=== PATIENT | female | born 1935 | race Asian ===

== ENCOUNTER 2019-08-06 20:38 | Inpatient (IN) | payer MEDICARE ==
[~2019-08-06] VITALS: Ht 157.5 cm; Wt 59.9 kg
--- NOTE | 2019-08-06 20:57 | NUR ---
BIBFAMILY FROM HOME TO ER BED 10. AAOX4. NO RESP DISTRES NOTED. BREATHING EVEN AND UNLABORED. AMBULATORY. C/O PALPITATION AND TREMBLING. PT REPORTS THAT TREMBLING STARTED @ 7PM AND FELT THAT HER HEART IS RACING. PT RONNY CP. DENIES NVD. WA AT BEDSIDE FOR EVAL. ORDERS RECEIVED NOTED AND CARRIED OUT. IV LINE ON R AC 20G. BLOOD DRAWN AND GIVEN TO PULMONARY PHYSICIAN AT BEDSIDE
[2019-08-06] MEDS ORDERED: IBUPROFEN 600 MG TABLET PO ONE (21:00)
[2019-08-06] MEDS ORDERED: AMOXICILLIN TRIHYDRATE 250 MG CAPSULE PO ONE (21:00)
[2019-08-06 21:01] LABS: BASOPHILS % (AUTO) 0.5 % (0.0-2.0); EOSINOPHILS % (AUTO) 2.2 % (0.0-6.0); HEMATOCRIT 36 % (33-45); HEMOGLOBIN 11.8 g/dL (11.5-14.8); LYMPHOCYTES # (AUTO) 2.4 /CMM (0.8-4.8); LYMPHOCYTES % (AUTO) 32.3 % (20.0-44.0); MEAN CORPUSCULAR HGB CONC 33 g/dl (31.0-36.0); MEAN CORPUSCULAR VOLUME 90 fL (82-100); MONOCYTES # (AUTO) 0.6 /CMM (0.1-1.30); MONOCYTES % (AUTO) 8.5 % (2.0-12.0); NEUTROPHILS # (AUTO) 4.2 /CMM (1.8-8.9); NEUTROPHILS % (AUTO) 56.5 % (43.0-81.0); PLATELET COUNT (AUTO) 276 /CMM (150-450); RED BLOOD CELL COUNT(AUTO) 3.97 MIL/uL (4.0-5.2); WHITE BLOOD COUNT (AUTO) 7.4 K/uL (4.3-11.0)
[2019-08-06 21:09] LABS: CALCIUM, SERUM 8.9 mg/dL (8.5-10.1); CARBON DIOXIDE 26 mmol/L (21-32); CHLORIDE 96 mmol/L (98-107); CREATININE 1.1 mg/dL (0.6-1.3); GLUCOSE 198 mg/dL (74-106); POTASSIUM 3.9 mmol/L (3.5-5.1); SODIUM SERUM 136 mmol/L (136-145); UREA NITROGEN, BLOOD 12 mg/dL (7-18)
[2019-08-06 21:22] LABS: ALANINE AMINOTRANSFERASE 18 U/L (12-78); ALBUMIN 4.2 g/dL (3.4-5.0); ALKALINE PHOSPHATASE 72 U/L (46-116); ASPARTATE AMINOTRANSFERASE 13 U/L (15-37); B-TYPE NATRIURETIC PEPTIDE 55 PG/ML (0-125); BILIRUBIN,DIRECT 0.1 mg/dL (0.0-0.2); BILIRUBIN,TOTAL 0.4 mg/dL (0.2-1.0); TOTAL PROTEIN, SERUM 8.2 g/dL (6.4-8.2)
[2019-08-06] MEDS ORDERED: CLONIDINE HCL 0.1 MG TABLET ONE (22:06)
--- NOTE | 2019-08-06 22:25 | NUR ---
PT NOTED W/ ELEVATED BP OF 187/87. MADE AWARE. ORDER RECEIVED FOR CLONIDINE 0.1MG X 1
[2019-08-06] MEDS ORDERED: LORAZEPAM 0.5 MG TABLET ONE (22:28)
[2019-08-06] MEDS ORDERED: ONDANSETRON HCL/PF 4 MG/2 ML VIAL IVP PRN (22:30)
[2019-08-06] MEDS ORDERED: DEXTROSE 50%-WATER 50 ML DISP.SYRIN IV PRN (22:30)
[2019-08-06] MEDS ORDERED: ZOLPIDEM TARTRATE 5 MG TABLET PO PRN (22:30)
[2019-08-06] MEDS ORDERED: METOPROLOL TARTRATE INJ 5 MG/5 ML AMPUL IV ONE (22:30)
[2019-08-06] MEDS ORDERED: LORAZEPAM 0.5 MG TABLET PO ONE (22:30)
[2019-08-06] MEDS: BLOOD SUGAR DIAGNOSTIC 1 EACH STRIP IN SCH (22:30)
[2019-08-06] MEDS ORDERED: ENOXAPARIN SODIUM 40 MG/0.4 ML DISP.SYRIN SQ ONE (22:30)
[2019-08-06] MEDS ORDERED: CLONIDINE HCL 0.1 MG TABLET PO ONE (22:30)
[2019-08-06] MEDS ORDERED: MAG HYDROX/AL HYDROX/SIMETH 30 ML UDC PO PRN (22:30)
[2019-08-06] MEDS ORDERED: MAGNESIUM HYDROXIDE 30 ML UDC PO PRN (22:30)
[2019-08-06] MEDS ORDERED: ACETAMINOPHEN 325 MG TABLET PO PRN (22:30)
[2019-08-06] MEDS ORDERED: Z GUARD REMEDY 2 OZ OINT TP PRN (22:30)
[2019-08-06] MEDS ORDERED: HYDROCODONE/APAP 5/325MG 1 EACH TABLET PO PRN (22:30)
[2019-08-06] MEDS ORDERED: ASPIRIN 81 MG TAB.CHEW PO ONE (23:00)
--- NOTE | 2019-08-06 23:12 | NUR ---
REPORT GIVEN TO AL MORALES FOR ELENA
--- NOTE | 2019-08-06 23:23 | NUR ---
US AT BEDSIDE
[2019-08-07] VITALS (8 sets, daily range): BP systolic 119–165; BP diastolic 60–79
--- NOTE | 2019-08-07 00:10 | NUR ---
PT TRANSPORTED TO UNIT ON [facility] WITH EMT AND RN AT BEDSIDE W/ ACLS PROTOCOL. NAD NOTED DURING TRANSPORT. PT AMBULATED FROM [facility] TO BED
--- NOTE | 2019-08-07 00:15 | NUR ---
SPOT FACERCOMMIS CHEF NOTES RECEIVED REPORT FROM AL VASQUEZ, IN THE ER. PATIENT TRANSFERRED TO UNIT VIA GURNEY. FAMILY PRESENT AT THE BEDSIDE. PATIENT A/O X4. ABLE TO AMBULATE INDEPENDENTLY, STEADY GAIT. ON ROOM AIR. NO COMPLAINTS OF SOB OR CHEST PAIN AT THIS TIME. TELE MONITOR READING SINUS TACHY, HEART RATE 110-120 BPM. IV PRESENT ON RIGHT AC, SIZE 20, INTACT & PATENT, HEP LOCKED. SKIN ASSESSMENT COMPLETED, WNL. MED RECONCILIATION COMPLETED AT THE BEDSIDE. BELONGINGS LIST COMPLETED AND PLACED IN CHART. MRSA SWAB COMPLETED IN THE ER. PATIENT ABLE TO VERBALIZE NEEDS. BED LOCKED, SEMI-MATTA'S POSITION, SIDE RAILS X2, CALL LIGHT WITHIN REACH. WILL CONTINUE TO MONITOR.
--- NOTE | 2019-08-07 00:30 | NUR ---
DOORPERSON OR LUGGAGE PORTER NOTES BS 115
--- NOTE | 2019-08-07 00:45 | NUR ---
EDUCATIONAL AIDE NOTES CONTACTED PHARMACY TO VERIFY SCHEDULED MEDICATIONS.
--- NOTE | 2019-08-07 01:00 | NUR ---
FARM CONTRACTOR BUYER NOTES CONTACTED [facility] REGARDING MED RECONCILIATION; MADE AWARE AND AWAITING FOR CONTINUATION OF HOME MEDS.
[2019-08-07] MEDS ORDERED: METO100T14 PO (01:02)
[2019-08-07] MEDS ORDERED: METF-441 PO (01:02)
[2019-08-07] MEDS ORDERED: RANI150C4 PO (01:02)
[2019-08-07] MEDS ORDERED: LEVO88TA5 PO (01:02)
[2019-08-07] MEDS ORDERED: AMLO5TAB9 PO (01:02)
--- NOTE | 2019-08-07 01:30 | NUR ---
SYSTEMS TECHNICIAN NOTES SCHEDULED MEDICATIONS STILL UNVERIFIED. CONTACTED PHARMACY TO FOLLOW UP.
[2019-08-07] MEDS ORDERED: METOPROLOL TARTRATE INJ 5 MG/5 ML AMPUL IVP ONE ×2 (02:00→03:00)
--- NOTE | 2019-08-07 03:41 | NUR ---
SHINGLES ROOFER HELPER NOTES LOPRESSOR 10 MG IVP HELD - BP: 119/69 HR: 94. TELE MONITOR READING SINUS RHYTHM
[2019-08-07] MEDS: BLOOD SUGAR DIAGNOSTIC 1 EACH STRIP IN SCH ×4 (06:33→21:54)
[2019-08-07] MEDS: ASPIRIN 81 MG TAB.CHEW PO SCH ×2 (06:34→09:19)
[2019-08-07 06:51] LABS: BASOPHILS % (AUTO) 0.7 % (0.0-2.0); EOSINOPHILS % (AUTO) 2.2 % (0.0-6.0); HEMATOCRIT 31 % (33-45); HEMOGLOBIN 10.1 g/dL (11.5-14.8); LYMPHOCYTES # (AUTO) 1.5 /CMM (0.8-4.8); LYMPHOCYTES % (AUTO) 28.7 % (20.0-44.0); MEAN CORPUSCULAR HGB CONC 33 g/dl (31.0-36.0); MEAN CORPUSCULAR VOLUME 90 fL (82-100); MONOCYTES # (AUTO) 0.5 /CMM (0.1-1.30); MONOCYTES % (AUTO) 9.8 % (2.0-12.0); NEUTROPHILS # (AUTO) 3.1 /CMM (1.8-8.9); NEUTROPHILS % (AUTO) 58.6 % (43.0-81.0); PLATELET COUNT (AUTO) 244 /CMM (150-450); RED BLOOD CELL COUNT(AUTO) 3.43 MIL/uL (4.0-5.2); WHITE BLOOD COUNT (AUTO) 5.3 K/uL (4.3-11.0)
--- NOTE | 2019-08-07 07:14 | NUR ---
AUTOMATIC TRIMMING SEWER NOTES PATIENT AWAKE IN BED. A/OX4. ON ROOM AIR. TELE MONITOR READING NORMAL SINUS RHYTHM, HEART RATE 86. NO COMPLAINTS OF SOB OR CHEST PAIN AT THIS TIME. PATIENT SEEN BY DR. VYAS AT THE BEDSIDE. IV PRESENT ON RIGHT AC, SIZE 20, INTACT & PATENT, HEP LOCKED. BED LOCKED, SEMI-MATTA'S POSITION, SIDE RAILS X2, CALL LIGHT WITHIN REACH. WILL ENDORSE TO DAY SHIFT NURSE TO FOLLOW PLAN OF CARE.
[2019-08-07 07:26] LABS: CALCIUM, SERUM 8.3 mg/dL (8.5-10.1); CREATININE 0.7 mg/dL (0.6-1.3); PHOSPHORUS 4.3 mg/dL (2.5-4.9); POTASSIUM 3.9 mmol/L (3.5-5.1)
[2019-08-07 07:46] LABS: MAGNESIUM 1.1 mg/dL (1.8-2.4)
[2019-08-07] MEDS ORDERED: METFORMIN 850 MG TABLET PO SCH (08:00)
--- NOTE | 2019-08-07 08:04 | NUR ---
QUALITY ASSURANCE ADVISOR NOTES PATIENT RECEIVED RESTING INSIDE ROOM. AWAKE, A/O X 4. NO ACUTE DISTRESS. NO CHANGES IN LOC. PATIENT CALM AND RELAXED. DENIES ANY PAIN OR DISCOMFORT. WITH ORDER FROM DR VYAS FOR CTA HEART WITH 3D IMAGING. PATIENT MADE AWARE AND VERBALIZED UNDERSTANDING. AWAITING FOR SCHEDULE FROM RADIOLOGY. CONTINUE TELEMETRY, SR 87. WILL CONTINUE TO MONITOR. BED LOCKED AND IN LOW POSITION. BILATERAL UPPER SIDE RAILS UP AND LOCKED. CALL LIGHT WITHIN EASY REACH
--- NOTE | 2019-08-07 08:10 | NUR ---
BROKER IN CHARGE NOTES PATIENT REPORTED THAT SHE HAD PREVIOUSLY HAD AN ANGIOGRAM DONE AND SHE EXPERIENCED GENERALIZED MILD-MODERATE ITCHING. DR VYAS MADE AWARE. WITH ORDER TO GIVE BENADRYL 25MG PO X 1 AND SOLU-MEDROL 100MG IV X 1 FOR POSSIBLE ALLERGIC REACTION DURING CTA PROCEDURE. NOTED AND CARRIED OUT. PATIENT MADE AWARE AND VERBALIZED UNDERSTANDING. WILL CONTINUE TO MONITOR
--- NOTE | 2019-08-07 08:51 | NUR ---
PRE KINDERGARTEN TEACHER NOTES PATIENT WITH ORDER FOR CTA BY DR VYAS. PATIENT WITH CURRENT ORDER FOR METFORMIN 850mg PO TID. DR JAUREGUI MADE AWARE WITH NEW ORDER TO DC METFORMIN AT THIS TIME. ORDER NOTED AND CARRIED OUT. PATIENT MADE AWARE AND VERBALIZED UNDERSTANDING. WILL CONTINUE TO MONITOR
--- NOTE | 2019-08-07 08:57 | NUR ---
STUDIO HAND NOTES MAG LEVEL 1.1. PER PHARMACY, UNABLE TO REPLACE BY PHARMACY LEVEL IS TOO LOW. DR JAUREGUI MADE AWARE. AWAITING ORDERS.
[2019-08-07] MEDS: METOPROLOL TARTRATE 50 MG TABLET PO SCH ×3 (09:00→17:35)
[2019-08-07] MEDS ORDERED: METOPROLOL TARTRATE 50 MG TABLET PO SCH (09:00)
[2019-08-07] MEDS: ENOXAPARIN SODIUM 40 MG/0.4 ML DISP.SYRIN SQ SCH (09:18)
[2019-08-07] MEDS: AMLODIPINE BESYLATE 5 MG TABLET PO SCH (09:19)
[2019-08-07] MEDS: LEVOTHYROXINE SODIUM 88 MCG TABLET PO SCH (09:19)
[2019-08-07] MEDS: FAMOTIDINE (20 MG) 20 MG TABLET PO SCH (09:19)
[2019-08-07] MEDS: Magnesium 1GM/D5W 100ML PREMIX 100 ML IV SCH ×4 (10:56→16:48)
--- NOTE | 2019-08-07 11:27 | NUR ---
LENS SILVERER NOTES PLACED CALL TO RADIOLOGY TO FOLLOW-UP REGARDING CTA, VERBALIZED THAT NURSING EMERGENCY PHYSICIAN IS AWARE AND SAID THAT WERE STILL WAITING FOR LICENSED STAFF TO DO PROCEDURE. PATIENT AND SON, DEV AT BEDSIDE AWARE AND VERBALIZED UNDERSTANDING. WILL CONTINUE TO MONITOR
[2019-08-07] MEDS: INSULIN REGULAR, HUMAN 100 UNIT/ML 3 ML VIAL SQ PRN (17:35)
--- NOTE | 2019-08-07 18:45 | NUR ---
HEAD TEACHER NOTES PATIENT RESTING INSIDE ROOM. NO ACUTE DISTRESS. NO CHANGES IN LOC NOTED. PROFESSIONAL BENEFITS SALES CONSULTANT IN PLACE, SR 70'S. PATIENT KEPT CLEAN, DRY AND COMFORTABLE. WILL ENDORSE TO INCOMING SHIFT FOR ELENA. BED LOCKED AND IN LOW POSITION. BILATERAL UPPER SIDE RAILS UP AND LOCKED. CALL LIGHT WITHIN EASY REACH
--- NOTE | 2019-08-07 19:30 | NUR ---
MS RN OPENING NOTES PATIENT AWAKE IN BED UPON ARRIVAL. FAMILY PRESENT AT THE BEDSIDE. A/O X4. ON ROOM AIR. TELE MONITOR READING NSR, HEART RATE 77. NO COMPLAINTS OF CHEST PAIN OR SOB AT THIS TIME. IV PRESENT ON THE RIGHT AC, SIZE 20, INTACT & PATENT, HEP LOCKED. BED LOCKED, SEMI-MATTA'S POSITION, SIDE RAILS X2, CALL LIGHT WITHIN REACH. WILL CONTINUE TO MONITOR.
[2019-08-08] VITALS (7 sets, daily range): BP systolic 130–156; BP diastolic 70–84
[2019-08-08 06:46] LABS: BASOPHILS % (AUTO) 0.7 % (0.0-2.0); EOSINOPHILS % (AUTO) 3.2 % (0.0-6.0); HEMATOCRIT 36 % (33-45); HEMOGLOBIN 11.9 g/dL (11.5-14.8); LYMPHOCYTES # (AUTO) 1.6 /CMM (0.8-4.8); LYMPHOCYTES % (AUTO) 29.5 % (20.0-44.0); MEAN CORPUSCULAR HGB CONC 33 g/dl (31.0-36.0); MEAN CORPUSCULAR VOLUME 89 fL (82-100); MONOCYTES # (AUTO) 0.5 /CMM (0.1-1.30); MONOCYTES % (AUTO) 9.4 % (2.0-12.0); NEUTROPHILS # (AUTO) 3.1 /CMM (1.8-8.9); NEUTROPHILS % (AUTO) 57.2 % (43.0-81.0); PLATELET COUNT (AUTO) 282 /CMM (150-450); RED BLOOD CELL COUNT(AUTO) 4.04 MIL/uL (4.0-5.2); WHITE BLOOD COUNT (AUTO) 5.5 K/uL (4.3-11.0)
[2019-08-08 07:00] LABS: CALCIUM, SERUM 9.4 mg/dL (8.5-10.1); CREATININE 0.8 mg/dL (0.6-1.3); POTASSIUM 3.8 mmol/L (3.5-5.1)
[2019-08-08] MEDS: BLOOD SUGAR DIAGNOSTIC 1 EACH STRIP IN SCH ×3 (07:30→17:30)
--- NOTE | 2019-08-08 07:42 | NUR ---
JUMPBASTING MACHINE OPERATOR CLOSING NOTES PATIENT AWAKE AND RESTING IN BED. A/O X4. ON ROOM AIR. NO COMPLAINTS OF SOB, CHEST PAIN, OR PALPITATIONS AT THIS TIME. TELE MONITOR READING NORMAL SINUS RHYTHM, HEART RATE 66. IV PRESENT ON RIGHT AC, SIZE 20, INTACT & PATENT, HEP LOCKED. PATIENT SCHEDULED FOR CT ANGIO OF THE HEART, CONSENT SIGNED AND PLACED IN CHART. BED LOCKED, SEMI-MATTA'S POSITION, SIDE RAILS X2, CALL LIGHT WITHIN REACH. WILL ENDORSE TO DAY SHIFT NURSE TO FOLLOW PLAN OF CARE.
[2019-08-08] MEDS ORDERED: methylPREDNISolone SOD SUCC 125 MG/2ML VIAL IV PRN (08:00)
[2019-08-08] MEDS ORDERED: diphenhydrAMINE HCL 25 MG CAPSULE PO PRN (08:00)
[2019-08-08] MEDS: ASPIRIN 81 MG TAB.CHEW PO SCH (08:17)
[2019-08-08] MEDS: FAMOTIDINE (20 MG) 20 MG TABLET PO SCH (08:17)
[2019-08-08] MEDS: METOPROLOL TARTRATE 50 MG TABLET PO SCH ×2 (08:17→16:41)
[2019-08-08] MEDS: AMLODIPINE BESYLATE 5 MG TABLET PO SCH (08:18)
[2019-08-08] MEDS: ENOXAPARIN SODIUM 40 MG/0.4 ML DISP.SYRIN SQ SCH (08:20)
[2019-08-08] MEDS: LEVOTHYROXINE SODIUM 88 MCG TABLET PO SCH (08:32)
[2019-08-08] MEDS ORDERED: IOHEXOL-350 100 ML VIAL IV ONE ×2 (08:47→09:59)
[2019-08-08] MEDS ORDERED: IV NS 0.9% 250 ML IV ONE (08:47)
--- NOTE | 2019-08-08 08:55 | NUR ---
IV LINE LAC 18 G inserted for procedure. Benadryl and solu-medrol administrated. Patient picked up by radiology staff
[2019-08-08] MEDS ORDERED: NITROGLYCERIN 0.4 MG/TAB BOTTLE ONE (09:08)
[2019-08-08] MEDS ORDERED: METOPROLOL TARTRATE INJ 5 MG/5 ML AMPUL ONE ×2 (09:09→09:33)
[2019-08-08] MEDS: METOPROLOL TARTRATE INJ 5 MG/5 ML AMPUL IVP PRN ×10 (09:11→09:56)
[2019-08-08 09:28] LABS: FERRITIN 16 ng/mL (8-388)
[2019-08-08] MEDS ORDERED: NITROGLYCERIN 0.4 MG/TAB BOTTLE SL PRN (09:30)
[2019-08-08] MEDS ORDERED: IV NS 0.9% 500 ML IV PRN (09:30)
[2019-08-08 09:42] LABS: IRON, SERUM 52 ug/dl (50-175); TOTAL IRON BINDING CAPACITY 383 ug/dl (250-450)
--- NOTE | 2019-08-08 10:07 | NUR ---
CTA heart completed total of Metoprolol 50 mg IVP given with NTG 0.4 mg Sl, VSS; pt tolerated procedure; denies CP or SOB;l sent back to [facility] via wheelchair; endorsed at bedside to floor RN
--- NOTE | 2019-08-08 10:10 | NUR ---
Patient stable after procedure , no s/s allergic reaction noted . Remains on room air.
[2019-08-08] MEDS: INSULIN REGULAR, HUMAN 100 UNIT/ML 3 ML VIAL SQ PRN (11:44)
--- NOTE | 2019-08-08 18:20 | NUR ---
Patient cleared for d/c by MD and gas specialist. Patient ambulatory , alert and oriented x3, VS are stable on room air. Patient received recommendations, discharge instructions and teaching. Patient verbalized understanding . Patient will f/u with PCP in 2 weeks. All needs attended. IV lines removed, no bleeding noted. ID wrist band removed. Patient has no skin issues. Patient sighed d/c papers and valuable form; all belongings with the patient. Patient safely transferred to [facility] accompanied by PALM AND BACK FORGER and son.
[2019-08-09] MEDS ORDERED: VALS1TAB4 PO (14:20)
[2019-08-09] MEDS ORDERED: OMEP20CA15 PO (14:20)
[2019-08-09] MEDS ORDERED: METO-358 PO (14:20)
[2019-08-11] MEDS ORDERED: SIMV10TA98 PO (18:24)
[2019-08-11] MEDS ORDERED: ASPI-869 PO (18:24)
[2019-08-11] MEDS ORDERED: LEVO500T2 PO (18:24)
== END 2019-08-08 18:27 | disposition home or self-care (01) | DRG 641 ==
LOC: ER 20:43 → TELE 22:43 → MED 08-08 10:17
PROVIDERS: ADMIT Nurse Practitioner Acute Care; ATTEND Hospitalist
DX: E86.0 Dehydration (principal); I16.9 Hypertensive crisis, unspecified; I10 Essential (primary) hypertension; I25.10 Atherosclerotic heart disease of native coronary artery without angina pectoris; E11.9 Type 2 diabetes mellitus without complications; E83.42 Hypomagnesemia; Z95.5 Presence of coronary angioplasty implant and graft; E03.9 Hypothyroidism, unspecified; I70.0 Atherosclerosis of aorta
CPT/HCPCS: 36415; 71045-TC; 75574; 80048-TC; 80061-TC; 80076-TC; 82728-TC; 82962-TC; 83540-TC; 83735-TC; 83880; 84100-TC; 84439-TC; 84443-TC; 84484-TC; 85025-TC; 85378-TC; 85730-TC; 87040-TC; 87081-TC; 93307-TC; 93970-TC; 97116-TC; 97530-TC; G0378; J1650; J1815; J2930; J3475; J3490; J7050; Q0163; Q9967

== ENCOUNTER 2019-08-09 12:47 | Inpatient (IN) | payer MEDICARE ==
[~2019-08-09] VITALS: Ht 162.6 cm; Wt 59.4 kg
[~2019-08-09 12:47] MED LIST: AMLO5TAB9 PO; LEVO88TA5 PO; METF-441 PO; METO100T14 PO; RANI150C4 PO
--- NOTE | 2019-08-09 13:00 | NUR ---
PT CAME INTO THE ED C/O WEAKNESS,SHAKINESS, AND BEING MORE CONFUSED PER SON. PT ALERT, VSS, NO ACUTE DISTRESS NOTED. CONNECTED TO THE MONITOR AND POX
[2019-08-09 13:26] LABS: BASOPHILS % (AUTO) 0.2 % (0.0-2.0); EOSINOPHILS % (AUTO) 0.3 % (0.0-6.0); HEMATOCRIT 35 % (33-45); HEMOGLOBIN 11.3 g/dL (11.5-14.8); LYMPHOCYTES # (AUTO) 0.5 /CMM (0.8-4.8); LYMPHOCYTES % (AUTO) 2.9 % (20.0-44.0); MEAN CORPUSCULAR HGB CONC 32 g/dl (31.0-36.0); MEAN CORPUSCULAR VOLUME 90 fL (82-100); MONOCYTES # (AUTO) 0.8 /CMM (0.1-1.30); MONOCYTES % (AUTO) 4.5 % (2.0-12.0); NEUTROPHILS # (AUTO) 15.4 /CMM (1.8-8.9); NEUTROPHILS % (AUTO) 92.1 % (43.0-81.0); PLATELET COUNT (AUTO) 295 /CMM (150-450); RED BLOOD CELL COUNT(AUTO) 3.92 MIL/uL (4.0-5.2); WHITE BLOOD COUNT (AUTO) 16.7 K/uL (4.3-11.0)
[2019-08-09 13:35] LABS: CALCIUM, SERUM 9.4 mg/dL (8.5-10.1); CARBON DIOXIDE 31 mmol/L (21-32); CHLORIDE 94 mmol/L (98-107); CREATININE 0.9 mg/dL (0.6-1.3); GLUCOSE 176 mg/dL (74-106); POTASSIUM 4.3 mmol/L (3.5-5.1); SODIUM SERUM 132 mmol/L (136-145); UREA NITROGEN, BLOOD 17 mg/dL (7-18)
[2019-08-09] MEDS ORDERED: diphenhydrAMINE HCL 50 MG/ML VIAL ONE ×2 (13:55→14:10)
[2019-08-09] MEDS ORDERED: diphenhydrAMINE HCL 50 MG/ML VIAL IV ONE (14:00)
[2019-08-09] MEDS ORDERED: Magnesium 1 GM/2 ML VIAL IV ONE (14:00)
[2019-08-09] MEDS ORDERED: Magnesium 1 GM/2 ML VIAL ONE (14:09)
[2019-08-09] MEDS ORDERED: Magnesium 1GM/D5W 100ML PREMIX 100 ML IV ONE (14:12)
[2019-08-09] MEDS ORDERED: IOHEXOL-350 100 ML VIAL IV ONE (14:17)
[2019-08-09] MEDS ORDERED: CT SWABBABLE VALVE TRANS SET 1 EA INFUS.SET MC ONE (14:18)
[2019-08-09] MEDS ORDERED: IV NS 0.9% 250 ML IV ONE (14:18)
[2019-08-09] MEDS ORDERED: VALS1TAB4 PO (14:20)
[2019-08-09] MEDS ORDERED: METO-358 PO (14:20)
[2019-08-09] MEDS ORDERED: OMEP20CA15 PO (14:20)
[2019-08-09 14:48] LABS: CHOLESTEROL 188 mg/dL (<200); HDL CHOLESTEROL 71 mg/dL (40-60); LDL 112 mg/dL (0-99); TRIGLYCERIDES 123 mg/dL (30-150)
--- NOTE | 2019-08-09 15:30 | NUR ---
PT TAKEN TO CT
[2019-08-09] MEDS ORDERED: CEFTRIAXONE 1 G in IV D5W 50 ML IV ONE (16:00)
--- NOTE | 2019-08-09 16:00 | NUR ---
PT BACK FROM CT
[2019-08-09] MEDS ORDERED: CEFTRIAXONE 1GM BAG (ER ONLY) 50 ML IV ONE (16:04)
--- NOTE | 2019-08-09 16:18 | NUR ---
URINE COLLECTED AND SENT TO LAB
[2019-08-09 17:24] LABS: APPEARANCE,URINE Clear (CLEAR); BILIRUBIN,URINE Negative (NEGATIVE); BLOOD, URINE Negative Ery/uL (NEGATIVE); COLOR,URINE Yellow (YELLOW); KETONES,URINE Negative (NEGATIVE); LEUKOCYTE ESTERASE ,URINE Negative (NEGATIVE); NITRITE, URINE Negative (NEGATIVE); PROTEIN,URINE Negative (NEGATIVE); UGLUCOSE Negative (NEGATIVE); UROBILINOGEN,URINE 0.2 EU/dL (0.2)
[2019-08-09] MEDS ORDERED: ASPIRIN 325 MG TABLET PO ONE (18:00)
[2019-08-09] MEDS ORDERED: ASPIRIN 325 MG TABLET ONE (18:02)
--- NOTE | 2019-08-09 18:58 | NUR ---
PER RADIOLOGY, MRI IS SCHEDULED TOMORROW
[2019-08-09] MEDS ORDERED: ACETAMINOPHEN 325 MG TABLET PO PRN (19:00)
[2019-08-09] MEDS ORDERED: MAG HYDROX/AL HYDROX/SIMETH 30 ML UDC PO PRN (19:00)
--- NOTE | 2019-08-09 20:04 | NUR ---
REPORT GIVEN TO AL CURRIE
[2019-08-09 20:30] VITALS: BP 149/62
--- NOTE | 2019-08-09 20:30 | NUR ---
RN NOTES, RECEIVED 83 YEAR OLD FEMALE FROM ER DEPARTMENT VIA STRETCHER IN COMPANY OF 2 NURSES, PATIENT A/O X4 ABLE TO VERBALIZE NEEDS AND CONCERNS, UNDER MEDICAL SERVICES OF [facility], WITH ADMITTING DX OF CEREBRAL INFARCTION, PATIENT BREATHING EVEN AND UNLABORED AT ROOM AIR NO SOB/ACUTE DISTRESS NOTED, ABLE TO WALK FROM STRETCHER TO BED, NO DEFICITS NOTED, ASSESSMENT DONE WITH 0 SCORE FOR NIHSS, NO DRIFTING NOTED, NO ASYMMETRICAL SMILE, OR FACIAL DROOPING, NO SLURRED SPEECH NOTED, SON AT BEDSIDE, AFEBRILE, SKIN AFEBRILE AND INTACT, WITH 2 IV SITED RIGHT HAND AND RIGHT AC, PATENT AND INTACT, BED IN LOW POSITION, AMBULATORY WITH BRP PRIVILEGES, WILL CONTINUE TO MONITOR CLOSELY.
[2019-08-09] MEDS: SIMVASTATIN 10 MG TABLET PO SCH (22:00)
[2019-08-09] MEDS: ENOXAPARIN SODIUM 40 MG/0.4 ML DISP.SYRIN SQ SCH (22:15)
[2019-08-09] MEDS: BLOOD SUGAR DIAGNOSTIC 1 EACH STRIP IN SCH (22:22)
--- NOTE | 2019-08-09 22:35 | NUR ---
RN NOTES, PATIENT WITH BLOOD SUGAR LEVEL 232MG/dL, INFORMED MD ORDERED, AND CHERIE REPLIED WITH ORDER TO REPEAT ACCUCHECK IN 4 HRS AND IF IS MORE THAN 150, CALLED HIM BACK.
[2019-08-10] VITALS: BP 144/63
[2019-08-10] MEDS ORDERED: BLOOD SUGAR DIAGNOSTIC 1 EACH STRIP IN SCH
[2019-08-10 04:00] VITALS: BP 135/56
--- NOTE | 2019-08-10 07:00 | NUR ---
DOUGH MIXER HELPER NOTES PATIENT A/O X 4 . PATIENT IS COOPERATIVE WITH CARE PATIENT IS IN ROOM AIR AND TOLERATING WELL. NO SOB.NO PAIN. NO ACUTE RESPIRATORY DISTRESS. PATIENT MOVES AROUND IN BED INDEPENDENTLY . PATIENT SKIN IS IN TACT. . PATIENT IS CURRENTLY NPO PER DR ORDER. PATIENT HAS R IV SITE HAND / RIGHT AC LINE . BED LOCKED AND LOWEST POSITION CALL LIGHT WITH IN REACH. ALL SAFETY MEASURE IMPLEMENTED PER HOSPITAL POLICY
--- NOTE | 2019-08-10 07:00 | NUR ---
RN NOTES, NO SIGNIFICANT CHANGE IN CONDITION, CONTINUE NPO FOR FURTHER EVALUATION, WILL HAVE MRI TODAY, WILL ENDORSE CONTINUITY OF CARE TO ONCOMING NURSE.
[2019-08-10] MEDS: PANTOPRAZOLE 40 MG TABLET.DR PO SCH (07:30)
[2019-08-10] MEDS ORDERED: PANTOPRAZOLE 40 MG TABLET.DR PO SCH (07:30)
[2019-08-10 08:00] VITALS: BP 140/57
[2019-08-10 08:01] LABS: BASOPHILS # (AUTO) 0.1 /CMM (0.0-0.2); BASOPHILS % (AUTO) 0.4 % (0.0-2.0); EOSINOPHILS % (AUTO) 2.8 % (0.0-6.0); HEMATOCRIT 36 % (33-45); HEMOGLOBIN 11.9 g/dL (11.5-14.8); LYMPHOCYTES # (AUTO) 0.6 /CMM (0.8-4.8); LYMPHOCYTES % (AUTO) 4.3 % (20.0-44.0); MEAN CORPUSCULAR HGB CONC 33 g/dl (31.0-36.0); MEAN CORPUSCULAR VOLUME 89 fL (82-100); MONOCYTES # (AUTO) 0.8 /CMM (0.1-1.30); MONOCYTES % (AUTO) 5.6 % (2.0-12.0); NEUTROPHILS % (AUTO) 86.9 % (43.0-81.0); PLATELET COUNT (AUTO) 258 /CMM (150-450); RED BLOOD CELL COUNT(AUTO) 4.06 MIL/uL (4.0-5.2)
[2019-08-10 08:21] LABS: CREATININE 0.9 mg/dL (0.6-1.3); MAGNESIUM 1.7 mg/dL (1.8-2.4); PHOSPHORUS 4.4 mg/dL (2.5-4.9); POTASSIUM 4.1 mmol/L (3.5-5.1)
[2019-08-10] MEDS: ASPIRIN EC 325 MG TABLET.DR PO SCH ×2 (08:48→09:04)
[2019-08-10] MEDS: METOPROLOL TARTRATE 50 MG TABLET PO SCH ×2 (08:48→09:08)
[2019-08-10] MEDS: AMLODIPINE BESYLATE 5 MG TABLET PO SCH ×2 (08:49→09:04)
[2019-08-10] MEDS: LEVOTHYROXINE SODIUM 88 MCG TABLET PO SCH ×2 (08:50→09:03)
--- NOTE | 2019-08-10 08:51 | NUR ---
FIELD CARE COORDINATOR NOTES PATIENT NPO - NO MEDICATIONS GIVEN
[2019-08-10] MEDS: BLOOD SUGAR DIAGNOSTIC 1 EACH STRIP IN SCH ×5 (08:58→21:30)
--- NOTE | 2019-08-10 10:09 | NUR ---
completed checklist for mri pt, c/o allergy dye c/o itchiness,wendy notified,central service tech notified ,awaits md order.
[2019-08-10] MEDS ORDERED: HYDROCORTISONE SOD SUCCINATE 100 MG/2 ML VIAL IV ONE (10:13)
[2019-08-10] MEDS ORDERED: diphenhydrAMINE HCL 50 MG/ML VIAL IV SCH (10:13)
[2019-08-10] MEDS: METOPROLOL SUCCINATE 50 MG TAB.SR.24H PO SCH (10:39)
[2019-08-10] MEDS: HYDROCHLOROTHIAZIDE 25 MG TABLET PO SCH (10:40)
[2019-08-10] MEDS: CLOPIDOGREL BISULFATE 75 MG TABLET PO SCH (10:40)
[2019-08-10] MEDS: VALSARTAN 80 MG TABLET PO SCH (10:43)
[2019-08-10 12:00] VITALS: BP 116/54
--- NOTE | 2019-08-10 12:11 | NUR ---
Social service consult requested by IBAN Aguilar for stroke. Upon chart review and MD notes, pt. is a 83-year-old Female with history of stroke in 1993, CAD stent PCI, diabetes, hypertension and hypothyroidism who presents to the emergency department for evaluation of slurred speech, disorientation, shaking and generalized weakness. The patient states she was discharged from this hospital om 08/08/2019 after being admitted for palpitations. HYDRAULIC GOVERNOR ASSEMBLER met with the pt. bedside. Pt's two son's Lan and Jessi were bedside. Pt. was sitting upright on the bed at time of the assessment. HYDRAULIC GOVERNOR ASSEMBLER introduced herself to the pt. and family bedside. Pt. is alert and oriented x 4. Pt. is pleasant and cooperative with HYDRAULIC GOVERNOR ASSEMBLER during the assessment. Pt. resides with her older son Lan in [place] and is visiting her other son Florencia in [place]. Per son Florencia, pt has a history of depression but does not take any anti-depressants. HYDRAULIC GOVERNOR ASSEMBLER conducted the PhQ-9 post stroke depression assessment. Pt. denies feeling depressed. Pt. denies suicidal ideations, intent, means or plan. Please refer to PhQ-9 for further details. HYDRAULIC GOVERNOR ASSEMBLER provided pt. and family with active listening and supportive counseling. No other social service needs are requested at this time. HYDRAULIC GOVERNOR ASSEMBLER is available, if needed. Pt's emergency contacts are Lan/[phone] and Jessi/[phone].
[2019-08-10] MEDS: METFORMIN 850 MG TABLET PO SCH ×2 (13:02→17:09)
[2019-08-10 16:00] VITALS: BP 140/57
[2019-08-10] MEDS ORDERED: GADOTERIDOL 279.3 MG/ML VIAL IV ONE (16:11)
[2019-08-10] MEDS: Magnesium 1GM/D5W 100ML PREMIX 100 ML IV SCH ×2 (16:42→17:49)
[2019-08-10] MEDS: CEFTRIAXONE 1 G in IV D5W 50 ML IV SCH (17:10)
[2019-08-10] MEDS ORDERED: DEXTROSE 50%-WATER 50 ML DISP.SYRIN IV PRN (18:00)
--- NOTE | 2019-08-10 19:02 | NUR ---
BASKET OPERATOR NOTES NO SIGNIFICANT CHANGES . PATIENT IS RESTING IN BED COMFORTABLY AND AWAKE. PATIENT HAS FAMILY AT BEDSIDE BED LOCKED AND LOWEST POSITION CALL LIGHT WITH IN REACH ALL SAFETY MEASURE IMPLEMENTED PER HOSPITAL POLICY
--- NOTE | 2019-08-10 19:46 | NUR ---
TAIL DOGGER OPENING NOTES RECEIVED PATIENT A/O 4 TAJIK SPEAKER WITH NO SIGN OF ANY DISCOMFORT AT THE MOMENT. PATIENT IS ON ROOM AIR WITH NO SIGN OF ANY SOB. PATIENT HAS A YAEL MIDLINE TKO. PATIENT ON THE MONITOR SHOWING SR IN THE 80'S. PATIENT IS ABLE TO AMBULATE TO RESTROOM. ALL SAFETY PRECAUTIONS APPLIED. WILL CONTINUE TO MONITOR PATIENT FOR ELENA.
[2019-08-10 20:00] VITALS: BP_SYST 128; BP_DIAS 51; BP_DIAS 59
[2019-08-10] MEDS: ENOXAPARIN SODIUM 40 MG/0.4 ML DISP.SYRIN SQ SCH (20:26)
[2019-08-10] MEDS: SIMVASTATIN 10 MG TABLET PO SCH (21:19)
[2019-08-10] MEDS: INSULIN REGULAR, HUMAN 100 UNIT/ML 3 ML VIAL SQ PRN (21:35)
[2019-08-11] VITALS: BP 128/59
[2019-08-11 04:00] VITALS: BP 114/57
[2019-08-11 06:46] LABS: BASOPHILS % (AUTO) 0.3 % (0.0-2.0); EOSINOPHILS % (AUTO) 2.5 % (0.0-6.0); HEMATOCRIT 30 % (33-45); HEMOGLOBIN 10.1 g/dL (11.5-14.8); LYMPHOCYTES # (AUTO) 1.5 /CMM (0.8-4.8); LYMPHOCYTES % (AUTO) 13.4 % (20.0-44.0); MEAN CORPUSCULAR HGB CONC 34 g/dl (31.0-36.0); MEAN CORPUSCULAR VOLUME 89 fL (82-100); MONOCYTES # (AUTO) 0.9 /CMM (0.1-1.30); NEUTROPHILS # (AUTO) 8.2 /CMM (1.8-8.9); NEUTROPHILS % (AUTO) 75.8 % (43.0-81.0); PLATELET COUNT (AUTO) 229 /CMM (150-450); RED BLOOD CELL COUNT(AUTO) 3.38 MIL/uL (4.0-5.2); WHITE BLOOD COUNT (AUTO) 10.8 K/uL (4.3-11.0)
[2019-08-11 07:17] LABS: CALCIUM, SERUM 8.2 mg/dL (8.5-10.1); CREATININE 0.8 mg/dL (0.6-1.3); PHOSPHORUS 4.9 mg/dL (2.5-4.9); POTASSIUM 3.3 mmol/L (3.5-5.1)
[2019-08-11] MEDS ORDERED: LEVOTHYROXINE SODIUM 88 MCG TABLET PO SCH (07:30)
[2019-08-11] MEDS: BLOOD SUGAR DIAGNOSTIC 1 EACH STRIP IN SCH ×3 (07:30→16:39)
--- NOTE | 2019-08-11 07:32 | NUR ---
REPRESENTATIVE PHLEBOTOMY SERVICES CLOSING NOTE PATIENT IN BED WITH NO SIGN OF ANY DISCOMFORT. PATIENT ON THE MONITOR SHOWING SINUS RHYTHM. PATIENT IS ON ROOM AIR. ALL SAFETY PRECAUTIONS APPLIED. ENDORSED PATIENT TO MORNING SHIFT NURSE FOR ELENA.
[2019-08-11 08:00] VITALS: BP_SYST 145; BP_SYST 146; BP_DIAS 63; BP_DIAS 68
[2019-08-11] MEDS: HYDROCHLOROTHIAZIDE 25 MG TABLET PO SCH (08:56)
[2019-08-11] MEDS: METOPROLOL SUCCINATE 50 MG TAB.SR.24H PO SCH (08:57)
[2019-08-11] MEDS: AMLODIPINE BESYLATE 5 MG TABLET PO SCH (08:57)
[2019-08-11] MEDS: METFORMIN 850 MG TABLET PO SCH ×4 (08:58→16:44)
[2019-08-11] MEDS: VALSARTAN 80 MG TABLET PO SCH (08:58)
[2019-08-11] MEDS: CLOPIDOGREL BISULFATE 75 MG TABLET PO SCH (09:00)
[2019-08-11] MEDS: PANTOPRAZOLE 40 MG TABLET.DR PO SCH (09:00)
[2019-08-11] MEDS: ASPIRIN EC 325 MG TABLET.DR PO SCH (09:10)
[2019-08-11 12:00] VITALS: BP 146/63
[2019-08-11] MEDS ORDERED: POTASSIUM CHLORIDE 20 MEQ TAB.PRT.SR PO SCH (12:00)
[2019-08-11 16:00] VITALS: BP 126/54
[2019-08-11] MEDS: INSULIN REGULAR, HUMAN 100 UNIT/ML 3 ML VIAL SQ PRN (16:27)
[2019-08-11] MEDS: CEFTRIAXONE 1 G in IV D5W 50 ML IV SCH (16:29)
[2019-08-11] MEDS ORDERED: SIMV10TA98 PO (18:24)
[2019-08-11] MEDS ORDERED: ASPI-869 PO (18:24)
[2019-08-11] MEDS ORDERED: LEVO500T2 PO (18:24)
--- NOTE | 2019-08-11 19:30 | NUR ---
MS RN NOTES PATIENT IN BED, AWAKE, ALERT AND ORIENTED X 4. BREATHING EVEN AND UNLABORED ON ROOM AIR. DENIES ACUTE PAIN, NO ACUTE RESPIRATORY DISTRESS. IV ON YAEL MIDLINE IS CLEAN DRY AND INTACT SHOWS NO SIGNS OF INFILTRATION NO REDNESS. SAFETY PRECAUTIONS IN PLACE. BED IN LOWEST POSITION LOCKED, AND CALL LIGHT KEPT WITHIN REACH. WILL CONTINUE TO MONITOR.
--- NOTE | 2019-08-11 21:05 | NUR ---
MS RN NOTES PATIENT DISCHARGE LEFT BY WHEELCHAIR WITH SON AT 2104. YAEL MIDLINE WAS REMOVED AND CATHETER IS INFACT. SHOWS NO SIGN OF INFILTRATION NO REDNESS. ID WAS REMOVED. PATIENT LEFT WITH STABLE VITALS. DISCHARGE INSTRUCTION GIVEN AND PATIENT STATED UNDERSTANDING. NO NEW SKIN BREAKDOWNS. NO MISSING BELONGINGS. DOC AWARE OF DISCHARGE.
== END 2019-08-11 21:05 | disposition home or self-care (01) | DRG 69 ==
LOC: ER 12:47 → TELE1 18:31 → MEDSG1 08-11 14:04
PROVIDERS: ADMIT Registered Nurse; ATTEND Registered Nurse
PROC: 05H533Z Insertion of Infusion Device into Right Subclavian Vein, Percutaneous Approach (ICD-10-PCS; principal; 2019-08-09)
DX: G45.9 Transient cerebral ischemic attack, unspecified (principal); E87.1 Hypo-osmolality and hyponatremia; E03.9 Hypothyroidism, unspecified; E11.9 Type 2 diabetes mellitus without complications; E83.42 Hypomagnesemia; E86.0 Dehydration; K21.9 Gastro-esophageal reflux disease without esophagitis; Z79.84 Long term (current) use of oral hypoglycemic drugs; Z86.73 Personal history of transient ischemic attack (TIA), and cerebral infarction without residual deficits; I25.10 Atherosclerotic heart disease of native coronary artery without angina pectoris; R29.700 NIHSS score 0; R53.1 Weakness; I10 Essential (primary) hypertension; D72.829 Elevated white blood cell count, unspecified; Z95.5 Presence of coronary angioplasty implant and graft
CPT/HCPCS: 36415; 70450-TC; 70553-TC; 71045-TC; 80048-TC; 80061-TC; 81000-TC; 82550-TC; 82962-TC; 83090; 83735-TC; 84100-TC; 84484-TC; 85025-TC; 85730-TC; 87040-TC; 87081-TC; 87086-TC; 92611-TC; 97116-TC; 97530-TC; A9579; G0378; J0696; J1200; J1650; J1720; J1815; J3475; J7050; J7060; J7070; Q9967